=== PATIENT | male | born 1990 | race Hispanic/Latino ===

== ENCOUNTER 2023-06-11 13:40 | Emergency (ER) | payer OTHER, SELFPAY ==
[2023-06-11 13:41] VITALS: BP 135/98; PULSE 79; RESP 18; TEMP 36.3; O2SAT 100; BMI 24.0
--- NOTE | 2023-06-11 15:29 | EX.ED.DYSGE1 ---
HPI <ROXANN Cavazos - Last Filed: 06/11/23 15:43> History of Present Illness Chief Complaint: Fever Narrative Narrative: Patient is a 32-year-old male with no significant medical history [place] presents to the emergency department for fever 2 days ago, as well as concern for elevated cholesterol. I spoke with the patient's regional sales trainer who is sitting bedside. Patient states that 3 days ago, the patient was having body aches, fever. Patient states he does not feel any of that now however he is here concerning for high cholesterol. PFSH <ROXANN Cavazos - Last Filed: 06/11/23 15:43> PFSH Allergy/AdvReac Type Severity Reaction Status Date / Time No Known Allergies Allergy Verified 06/11/23 13:41 Social History Smoking Status: Never smoker ROS <ROXANN Cavazos - Last Filed: 06/11/23 15:43> ROS ED ROS Narrative Constitutional: Negative for weight loss, weakness. Positive fever and chills Eyes: Negative for vision loss, vision change, double vision ENT: Negative for any sore throat, ear pain, congestion Cardiovascular: Negative for any chest pain, tightness, palpitations Respiratory: Negative for any cough, sputum production, hemoptysis, dyspnea, dyspnea on exertion, orthopnea Gastrointestinal: Negative for any abdominal pain, nausea, vomiting, diarrhea, constipation, blood in stool, blood in vomit : Negative for any urinary frequency, dysuria, retention, blood in urine Muscle skeletal: Negative for any myalgias, arthralgias, neck pain, back pain Neurological: Negative for any headache, syncope, numbness or tingling, dizziness Skin: Negative for any rashes, lumps, itching, abrasions, lacerations Psychiatric: Negative for any depression, anxiety, stress, suicidal ideation, homicidal ideation Hematologic: Negative for any easy bruising, excessive bruising, easy bleeding Allergies: Negative for any eczema, hives, rash EXAM <ROXANN Cavazos Last Filed: 06/11/23 15:43> Physical Exam Narrative Exam Narrative: Vital signs reviewed. HEET: Head normocephalic atraumatic, TMs clear bilaterally. Posterior pharynx is clear, moist mucous membranes. Nares clear bilaterally. Neck: Supple with no lymphadenopathy or tenderness. No signs of meningismus. Cardiac: Regular rate and rhythm no murmurs gallops or rubs, equal peripheral pulses bilaterally. Respiratory: Lungs clear to auscultation bilaterally. No chest tenderness. Abdomen: Soft, nontender, nondistended. No abdominal bruit or pulsatile masses. No hepatosplenomegaly Extremities: No peripheral edema, no signs of gross trauma or deformity. Active full range of motion of all extremities. Neuro: Cranial nerves II through XII intact, no focal neurological deficits. Skin: Clean dry and intact with no rash, purpura, petechiae, vesicles or pustules. Backs/flank: No CVA tenderness, no midline spinal tenderness, no deformity. Psych: Normal mood and affect. No SI, HI or acute psychosis. Const Vital Signs: 06/11/23 13:41 06/11/23 14:53 Temperature 97.4 F L Temperature Source Temporal Pulse Rate 79 Respiratory Rate 18 Respiratory Effort Normal Respiratory Pattern Normal Blood Pressure 135/98 H Blood Pressure Mean 110 Pulse Ox 100 Oxygen Delivery Method Room Air <Dr. Logan Kemp DO - Last Filed: 06/11/23 23:10> Physical Exam Const Vital Signs: 06/11/23 13:41 06/11/23 14:53 Temperature 97.4 F L Temperature Source Temporal Pulse Rate 79 Respiratory Rate 18 Respiratory Effort Normal Respiratory Pattern Normal Blood Pressure 135/98 H Blood Pressure Mean 110 Pulse Ox 100 Oxygen Delivery Method Room Air [facility] <ROXANN Cavazos - Last Filed: 06/11/23 15:43> [facility] Treatment and Re-Evaluation :: Patient appears generally well, patient appears nontoxic, vital signs are stable. Patient presents to the emergency department for concern of elevated cholesterol. Patient did have fever and chills 3 days ago, patient will receive a COVID-19/influenza test. Differential diagnosis includes hyperlipidemia, COVID-19, influenza. I spoke with the patient via the spanish interpreter, I did let the patient know that he does need a primary care provider, they will be able to perform multiple screening tests. Patient denies any chest pain or shortness of breath. Patient's COVID-19, influenza was negative. At this time, do believe patient stable for discharge. He will be given referral to primary care provider. He was instructed via the staff interpreter. Patient will follow-up outpatient. All questions answered, patient stable for discharge <Dr. Logan Kemp DO - Last Filed: 06/11/23 23:10> [facility] Treatment and Re-Evaluation :: Patient appears generally well, patient appears nontoxic, vital signs are stable. Patient presents to the emergency department for concern of elevated cholesterol. Patient did have fever and chills 3 days ago, patient will receive a COVID-19/influenza test. Differential diagnosis includes hyperlipidemia, COVID-19, influenza. I spoke with the patient via the spanish interpreter, I did let the patient know that he does need a primary care provider, they will be able to perform multiple screening tests. Patient denies any chest pain or shortness of breath. Patient's COVID-19, influenza was negative. At this time, do believe patient stable for discharge. He will be given referral to primary care provider. He was instructed via the staff interpreter. Patient will follow-up outpatient. All questions answered, patient stable for discharge Attending note: Patient seen and evaluated with youth director. I perform my own [id number] evaluation. I agree with the plan of work-up. Patient presenting here translation individual available. Reported fever yesterday that resolved. He has [place] the [place] for for little over a year. He does not have a PCP. Discussion his concerns, stated concerns for hyperlipidemia. No cough. No vomiting or diarrhea. No urinary symptoms. No myalgias. He took Tylenol. Exam alert nontoxic no acute distress. Afebrile in the ED. Rapid COVID and flu obtained and were negative. He is referred to her primary care physician for outpatient testing for his concerns of hyperlipidemia. Discharge Plan Triage Chief Complaint: Fever ED Midlevel Provider: Yoni Husain ED Provider: Logan Kemp Dx/Rx/DC Orders Clinical Impression: History of viral illness Primary Care Provider: Care Physician,No Primary Referrals: Joel Carter MD [Med Staff - Nurse Tech] - Activity Restrictions/Additional Instructions: I have given you a primary care provider to follow-up with, call to get your screening labs done such as cholesterol, blood pressure, every day health. Print Language: Djiboutian Disposition Disposition: Home, Self Care Discharge Date/Time: 06/11/23 15:58
== END 2023-06-11 15:58 | disposition home or self-care (01) ==
LOC: ED 15:53
PROVIDERS: Emergency Provider Emergency Medicine; Visit Provider Emergency Medicine
DX: B34.9 Viral infection, unspecified (principal)
CPT/HCPCS: 87428; 99282

== ENCOUNTER 2023-06-24 15:55 | Emergency (ER) | payer SELFPAY ==
[2023-06-24 15:55] VITALS: BP 130/91; PULSE 90; RESP 14; TEMP 36.2; O2SAT 100; BMI 21.7
--- NOTE | 2023-06-24 16:14 | EKG12_ITS ---
Test Reason : CP Blood Pressure : / mmHG Vent. Rate : 081 BPM Atrial Rate : 081 BPM P-R Int : 172 ms QRS Dur : 078 ms QT Int : 354 ms P-R-T Axes : 073 033 036 degrees QTc Int : 411 ms Normal sinus rhythm Normal ECG Confirmed by GEORGINA GARCIA, AYAH ([id number]), research editor ERYN MAST ([id number]) on 07/02/2023 6:46:27 AM Referred By: ES/PL Confirmed By:MALI ERICKSON MD
--- NOTE | 2023-06-24 16:21 | EDS_ITS ---
HPI History of Present Illness Chief Complaint: Chest Pain Informant: patient and other (Cloth Washer Back Tender brought with patient.) Narrative Narrative: Patient presents with palpitations and chest pain. He states this episode has been going off and on since about 3:00 this morning so over 12 hours. He has had 4 or 5 other episodes of this. He did have some alcohol but states they do not always occur after that. They do seem to occur after he eats or drinks something different. He states 1 was after drinking some lemon juice. 1 was after eating pork last night. He states when this happens he feels very anxious about it. He has never been officially diagnosed with anxiety. He is not coughing. He is not syncopal. All the discomfort is in the center of his chest and does not radiate. He does get some tingling of his fingertips with this. He has been seen before for this. He is not sure if it was here or elsewhere. He states when he is seen nothing is ever found. There has not been any follow-up yet. He takes no medications No allergies No surgeries He denies any recent travel surgery immobilization personal family history of DVT or PE. There is no heart history in his family. PFSH PFSH Allergy/AdvReac Type Severity Reaction Status Date / Time No Known Allergies Allergy Verified 06/24/23 15:57 Social History Smoking Status: Never smoker ROS ROS ED ROS Narrative A complete review of systems was performed and is negative except as documented in the history of present illness. Some specific details below. Constitutional: No recent fevers states he does feel chilled when he gets this. He states he gets a fine tremor or shaking. But has not had a fever. EYE: No discharge, visual complaints, or pain. ENT: No difficulty swallowing. No swelling. No pain. No reflux symptoms. CV: See history of present illness. Respiratory: Not short of breath or coughing. GI: No abdominal pain. No nausea vomiting diarrhea. No blood in stool. : No frequency dysuria or hematuria. Musculoskeletal: No recent trauma. No pains. No swelling. Skin: No rash. Nondiaphoretic. Neuro: No weakness or numbness. Get a paresthesia of his fingertips sometimes but not every time. Endocrine: No polyuria or polydipsia. Psychiatry: He states he does feel anxious with these episodes but he is not sure if that is what starts them or it develops after the episode occurs. EXAM Physical Exam Narrative Exam Narrative: CONSTITUTIONAL: Patient is nontoxic in appearance. The patient looks comfortable. Work of breathing looks normal. HEENT: No notable trauma. Mucous membranes moist. No sinus tenderness. No indication of pain with swallowing. EYES: No conjunctival injection. No proptosis. Pallor. NECK:No JVD. No stridor. CARDIOVASCULAR: Regular rate. Regular rhythm. No notable murmur. No JVD. Monitor, his heart rate is 83 and regular and appears to be in sinus rhythm. I see no ectopy on the monitor. RESPIRATORY: No respiratory distress. Breathing is unlabored. No wheezes. No rhonchi. No rales. No pain with a deep breath. No chest wall tenderness. Saturations are normal at 100% on room air showing no hypoxia. GASTROINTESTINAL: Not distended. Bowel sounds are normal. No tenderness. No guarding. No rebound. No palpable mass. No bruit is heard. GENITOURINARY: No tenderness over the bladder. No CVA tenderness. MUSCULOSKELETAL: Atraumatic. No peripheral edema. No cord. No tenderness along the deep venous system. No asymmetry. No distended veins. NEUROLOGICAL: Patient is alert and appropriate. No focal deficit noted. SKIN: No noted rashes. No diaphoresis. PSYCHIATRIC: Patient does appear to be anxious. He has almost a fine tremor. Const Vital Signs: 06/24/23 15:55 06/24/23 16:29 06/24/23 17:16 Temperature 97.1 F L Temperature Source Temporal Pulse Rate 90 64 Respiratory Rate 14 16 Blood Pressure 130/91 H 118/80 Blood Pressure Mean 104 92 Pulse Ox 100 100 Oxygen Delivery Method Room Air Room Air Room Air MDM MDM MDM Narrative Medical decision making narrative: My independent interpretation of the patient's chest x-ray shows no acute process and final reading is similar. Patient CBC is normal. Patient's electrolytes show no marked abnormalities. Patient's troponin is negative at 7 with over 12 hours of symptoms. I think this patient's symptoms may be related to GERD because it seems like it occurs after eating unique foods. Because of this we will put him on Prilosec [id number] for the next 30 days. But it is also possible it could be related to an anxiety type event. I think it is appropriate he follows up with primary doctor. We will see how the medicine is helping and further evaluation from there. Of note I did use director of analytics for this. It somebody the patient brought with him and that was his preferred method. Lab Data Attestation: I reviewed the patient's lab results. Labs: Laboratory Results - last 24 hr 06/24/23 16:28 WBC 5.7 RBC 5.01 Hgb 14.9 Hct 44.9 MCV 89.6 MCH 29.7 MCHC 33.2 RDW Std Deviation 40.9 RDW Coeff of Zulay 12.4 Plt Count 241 MPV 10.4 Immature Gran % (Auto) 0.200 Neut % (Auto) 67.2 Lymph % (Auto) 26.5 [place] % (Auto) 5.0 Eos % (Auto) 0.4 Baso % (Auto) 0.7 Absolute Neuts (auto) 3.8 Absolute Lymphs (auto) 1.50 Nucleated RBC % 0 Sodium 139 Potassium 3.5 Chloride 109 H Carbon Dioxide 23.0 Anion Gap 7 BUN 8 Creatinine 0.88 Estim Creat Clear Calc 110.13 Est GFR (MDRD) Af Amer 126 Est GFR (MDRD) Non-Af 104 BUN/Creatinine Ratio 9.0 L Glucose 106 Calcium 10.4 H Troponin I High Sens 7 Radiography Diagnostic Testing: Clinical Impression(s) from Imaging Studies Chest X-Ray 06/24/23 16:25 IMPRESSION: No radiographic evidence of acute cardiopulmonary disease. Electronically Signed: Ahmet Lara MD at 16:46 EST Reading Location ID and State: [facility] / [place] , Service support , EKG Initial EKG: Comments: My independent interpretation of the patient's EKG shows a normal sinus rhythm with overall rate of 81. No ventricular ectopy. Mild baseline variation but no ST elevation or depression. [place] interval, QRS duration and QTc are normal. There was no old for comparison. Discharge Plan Triage Chief Complaint: Chest Pain ED Provider: Corby Coburn Dx/Rx/DC Orders Clinical Impression: GERD (gastroesophageal reflux disease), Chest pain Instructions: ED Chest Pain, Uncertain Cause, ED GERD (Adult) Primary Care Provider: Care Physician,No Primary Referrals: Yesenia Sloan [Non-Staff] - 3-5 Days Care Physician,No Primary [Primary Care Provider] - Activity Restrictions/Additional Instructions: Purchase Prilosec [id number] and take once daily for the next 30 days. Print Language: Slovenian Disposition Disposition: Home, Self Care
--- NOTE | 2023-06-24 16:23 | ED.RN ---
NO OLD EKG
--- NOTE | 2023-06-24 16:25 | RAD_ITS ---
EXAM: XR CHEST, 1 VIEW CLINICAL INDICATION: chest pain TECHNIQUE: Frontal view of the chest. COMPARISON: No relevant prior studies available. FINDINGS: LUNGS AND PLEURAL SPACES: Unremarkable. No consolidation or edema. No pneumothorax. No effusion. HEART: Unremarkable. Cardiac silhouette not enlarged. MEDIASTINUM: Central airways and mediastinal contour are unremarkable. BONES/JOINTS: Unremarkable. No acute fracture. SOFT TISSUES: Unremarkable. RAD/Chest 1 View (Portable) IMPRESSION: No radiographic evidence of acute cardiopulmonary disease. Electronically Signed: Ahmet Lara MD at 16:46 EST ,
[2023-06-24 16:32] LABS: Absolute Neutrophil Count 3.8 X10^3/uL (2.0-7.7); Basophil# 0.04 X10^3/uL; Basophil% 0.7 % (0-1); Eosinophil# 0.02 X10^3/uL; Eosinophils% 0.4 % (0-5); Hematocrit 44.9 % (40-54); Hemoglobin 14.9 g/dL (13.0-16.5); Lymphocyte % 26.5 % (19-41); Mean Corp Hgb Conc 33.2 g/dL (32-36); Mean Corpuscular Hgb 29.7 pg (27.0-32.0); Mean Corpuscular Volume 89.6 fL (80-94); Mean Platelet Vol. 10.4 fl (6.2-12.0); Monocyte# 0.28 X10^3/uL; NRBC Flagged by Analyzer 0 % (0-5); Neutrophil % 67.2 % (47-70); Platelet Count 241 K/mm3 (150-450); RBC Distribution Width CV 12.4 % (11.6-14.6); RBC Distribution Width SD 40.9 fl (35.1-43.9); Red Blood Count 5.01 M/mm3 (4.6-6.2); White Blood Count 5.7 K/mm3 (4.4-11.0)
[2023-06-24 16:54] LABS: Anion Gap 7 (5-15); BUN 8 mg/dL (7-18); Calcium,Total 10.4 mg/dL (8.5-10.1); Chloride 109 mmol/L (98-107); Creatinine, Serum 0.88 mg/dL (0.70-1.30); EST Glomerular Filtration Rate 104 mL/min (>60); Est Glom Filt Rate - Afr Amer 126 mL/min (>60); Estimated Creatinine Clearance 110.13 ml/min; Glucose 106 mg/dL (74-106); Potassium 3.5 mmol/L (3.5-5.1); Sodium Level 139 mmol/L (136-145); Troponin-I HS 7 pg/mL (3.0-78.0)
[2023-06-24 17:16] VITALS: BP 118/80; PULSE 64; RESP 16; O2SAT 100
== END 2023-06-24 18:06 | disposition home or self-care (01) ==
PROVIDERS: Emergency Provider Emergency Medicine; Visit Provider Emergency Medicine
DX: R07.9 Chest pain, unspecified (principal); K21.9 Gastro-esophageal reflux disease without esophagitis
CPT/HCPCS: 71045; 80048; 84484; 85025; 93005; 99283; A4216

== ENCOUNTER 2023-06-28 10:34 | Emergency (ER) | payer SELFPAY ==
[2023-06-28 10:35] VITALS: BP 124/73; PULSE 87; RESP 14; TEMP 36.8; O2SAT 98; BMI 23.1
[2023-06-28 10:52] VITALS: PULSE 72; RESP 12; O2SAT 100
--- NOTE | 2023-06-28 11:05 | EKG12_ITS ---
Test Reason : CHEST PAIN Blood Pressure : / mmHG Vent. Rate : 067 BPM Atrial Rate : 067 BPM P-R Int : 166 ms QRS Dur : 078 ms QT Int : 384 ms P-R-T Axes : 074 027 039 degrees QTc Int : 405 ms Normal sinus rhythm Normal ECG Confirmed by GEORGINA GARCIA, AYAH ([id number]), editor newspaper EDEN VALLADARES ([id number]) on 07/02/2023 1:59:34 P M Referred By: RU Confirmed By:MALI ERICKSON MD
--- NOTE | 2023-06-28 11:05 | EX.ED.DYSGE1 ---
HPI History of Present Illness Chief Complaint: Palpitations Detail of Chief Complaint: Palpitations and chest pain Informant: patient Narrative Narrative: Patient presents the emergency department complaint palpitations and chest pain. Patient states that he has had the symptoms for over a month. He has been seen in the emergency department for same and was thought he had anxiety and GERD. Patient states his GERD symptoms are better. Patient states at times his heart starts to race and he feels short of breath and then passes out. He is passed out about 5 times. His last syncopal episode was about a week ago. He denies recent illness. He denies recent travel or surgery. Patient speaking and had to use the iPad salad chef to interview patient. He otherwise has no medical history. He does not take anything for anxiety. [facility] Medical History (Updated 06/28/23 @ 12:[address] Se Guzmán DO) GERD (gastroesophageal reflux disease) History of ETOH abuse Home Medications lorazepam 1 mg tablet (Ativan) 1 mg PO TID PRN anxiety #10 tabs 06/28/23 [Rx Last Taken Unknown] Allergy/AdvReac Type Severity Reaction Status Date / Time No Known Allergies Allergy Verified 06/28/23 10:34 Social History Smoking Status: Never smoker ROS ROS ED Review of Systems ROS Unobtainable: other Constitutional Constitutional ED: Reports lethargy; Denies chills, fever(s), sweats or weight loss Eyes Eyes: Denies blurry vision, change in vision or diplopia ENT ENT ED: Denies rhinorrhea or sore throat Cardiovascular Cardiovascular: Reports chest pain and racing heartbeat; Denies orthopnea Respiratory/Chest Respiratory/Chest: Reports dyspnea; Denies cough, dyspnea on exertion, orthopnea or sputum Gastrointestinal Gastrointestinal: Denies abdominal pain, diarrhea, nausea or vomiting Genitourinary Genitourinary ED: Denies dysuria, hematuria or urinary frequency Musculoskeletal Musculoskeletal: Denies arthralgias, back pain, myalgias or neck pain Integumentary Denies abscess, Abrasions or rash Neurologic Neurologic: Reports other Details: Syncope ; Denies headache(s) or weakness Psychiatric Psychiatric: Denies anxiety, depression or suicidal thoughts Endocrine Endocrinology: Denies polydipsia, polyphagia or polyuria Hematologic/Lymphatic Hematologic/Lymphatic: Denies easy bleeding, easy bruising or lymphadenopathy Allergic/Immunologic Allergic/Immunologic ED: Denies mouth swelling, tongue swelling or urticaria EXAM Physical Exam Const Vital Signs: 06/28/23 10:35 06/28/23 10:52 06/28/23 10:54 Temperature 98.2 F Temperature Source Temporal Pulse Rate 87 72 Pulse Rate [Lying] Pulse Rate [Sitting (for 1 minute prior to obtaining)] Pulse Rate [Standing (for 1 minute prior to obtaining)] Respiratory Rate 14 12 Respiratory Effort Normal Blood Pressure 124/73 H Blood Pressure [Lying] Blood Pressure [Sitting (for 1 minute prior to obtaining)] Blood Pressure [Standing (for 1 minute prior to obtaining)] Blood Pressure Mean 90 Blood Pressure Mean [Lying] Blood Pressure Mean [Sitting (for 1 minute prior to obtaining)] Blood Pressure Mean [Standing (for 1 minute prior to obtaining)] Pulse Ox 98 100 Oxygen Delivery Method Room Air Room Air 06/28/23 11:40 06/28/23 12:28 Temperature Temperature Source Pulse Rate 60 Pulse Rate [Lying] 64 Pulse Rate [Sitting (for 1 minute prior to obtaining)] 63 Pulse Rate [Standing (for 1 minute prior to obtaining)] 62 Respiratory Rate 15 Respiratory Effort Blood Pressure 111/71 Blood Pressure [Lying] 118/75 Blood Pressure [Sitting (for 1 minute prior to obtaining)] 119/77 Blood Pressure [Standing (for 1 minute prior to obtaining)] 119/80 Blood Pressure Mean 84 Blood Pressure Mean [Lying] 89 Blood Pressure Mean [Sitting (for 1 minute prior to obtaining)] 91 Blood Pressure Mean [Standing (for 1 minute prior to obtaining)] 93 Pulse Ox 99 Oxygen Delivery Method Positive well nourished and well developed General Appearance ED: well developed and NAD HEENT Reports TM's clear and moist mucous membranes normocephalic and atraumatic; Negative for trauma or tenderness Tympanic Membrane ED: Yes TM's clear Eyes PERRL and EOMs intact bilaterally General Eye ED: Negative for pale conjunctiva or scleral icterus Neck no lymphadenopathy, supple and no JVD General: Negative for tenderness Chest Wall inspection of chest normal and palpation of chest normal Chest: Negative for tenderness Resp normal respiratory effort and clear to auscultation bilaterally Effort and Inspection: Negative for respiratory distress or pain with movement Auscultation: Negative for rhonchi, wheezes or diminished lung sounds Cardio regular rate, regular rhythm, S1 normal heart sound, S2 normal heart sound and no murmurs Peripheral Pulses: pulses 2+ throughout GI normal to inspection, nondistended, normoactive bowel sounds, soft to palpation, non-tender, non-distended and no masses Back/Spine no CVA tenderness and no thoracic nor lumbar tenderness Extremity normal to inspection General Extremety ED: Negative for edema General Extremity: Negative for edema Neuro oriented x3, CN's II-XII intact bilaterally, no sensory deficits noted and gait normal Sensorium / Orientation: awake, alert, oriented to person, oriented to place and oriented to time Motor Exam: strength 5/5 throughout and strength abnormal Psych mental status grossly normal Skin no rashes or lesions noted and no wounds MDM MDM MDM Narrative Medical decision making narrative: Patient presents with complaint of palpitations with syncopal episodes and history of anxiety. He has been to the ER for same complaint. His workup in the past was unremarkable. I did rerepeat an EKG here that showed a sinus rhythm with a rate of 67 bpm with no acute segment changes. CBC with differential and chemistries were normal. Troponin was normal. D-dimer was less than 0.27. Chest x-ray unremarkable. At this point etiology of his palpitations unclear as I did not appreciate any ectopy on the monitor. Will order a 48-hour Holter monitor and refer to cardiology for follow-up. Will also give him a prescription for as needed Ativan as needed for anxiety. Lab Data Attestation: I reviewed the patient's lab results. Labs: Laboratory Results - last 24 hr 06/28/23 11:00 WBC 5.1 RBC 4.93 Hgb 15.1 Hct 44.3 MCV 89.9 MCH 30.6 MCHC 34.1 RDW Std Deviation 40.5 RDW Coeff of [place]ul[place] 12.3 Plt Count 217 MPV 10.7 Immature Gran % (Auto) 0.200 Neut % (Auto) 50.7 Lymph % (Auto) 40.0 [place] % (Auto) 6.1 Eos % (Auto) 2.4 Baso % (Auto) 0.6 Absolute Neuts (auto) 2.6 Absolute Lymphs (auto) 2.03 Nucleated RBC % 0 D-Dimer Quant (PE/DVT) < 0.27 L Sodium 137 Potassium 3.8 Chloride 106 Carbon Dioxide 28.0 Anion Gap 3 L BUN 14 Creatinine 1.04 Estim Creat Clear Calc 90.32 Est GFR (MDRD) Af Amer 105 Est GFR (MDRD) Non-Af 87 BUN/Creatinine Ratio 13.5 Glucose 90 Calcium 9.3 Troponin I High Sens 6 Radiography Diagnostic Testing: Clinical Impression(s) from Imaging Studies Chest X-Ray 06/28/23 11:30 IMPRESSION: Normal x-ray examination of the chest. Electronically Signed: Tono Diane MD at 11:55 EST , 1 view chest x-ray obtained interpreted by myself as no evidence of infiltrate or acute disease process. Radiology in agreement. EKG Initial EKG: Attestation: I personally reviewed and interpreted this EKG as follows: Comments: Sinus rhythm with rate 67 bpm with no acute ST segment changes. Discharge Plan Triage Chief Complaint: Palpitations ED Provider: Se Guzmán Dx/Rx/DC Orders Clinical Impression: Palpitation, Anxiety, Syncope Instructions: ED Anxiety Reaction, ED Palpitations, ED Fainting, Uncertain Cause Prescriptions: New lorazepam [Ativan] 1 mg tablet 1 mg PO TID PRN (Reason: anxiety) Qty: 10 0RF Primary Care Provider: Care Physician,No Primary Referrals: Mary Haywood MD [Med Staff - Active Staff] - 5-7 Days Care Physician,No Primary [Primary Care Provider] - Disposition Disposition: Home, Self Care Discharge Date/Time: 06/28/23 13:11
[2023-06-28 11:24] LABS: Absolute Lymphocyte Count 2.03 X10^3/uL (0.83-4.51); Absolute Neutrophil Count 2.6 X10^3/uL (2.0-7.7); Basophil# 0.03 X10^3/uL; Basophil% 0.6 % (0-1); Eosinophil# 0.12 X10^3/uL; Eosinophils% 2.4 % (0-5); Hematocrit 44.3 % (40-54); Hemoglobin 15.1 g/dL (13.0-16.5); Lymphocyte # 2.03 X10^3/ul (0.83-4.51); Mean Corp Hgb Conc 34.1 g/dL (32-36); Mean Corpuscular Hgb 30.6 pg (27.0-32.0); Mean Corpuscular Volume 89.9 fL (80-94); Mean Platelet Vol. 10.7 fl (6.2-12.0); Monocyte# 0.31 X10^3/uL; Monocyte% 6.1 % (0-10); NRBC Flagged by Analyzer 0 % (0-5); Neutrophil # 2.58 X10^3/uL (2.7-7.7); Neutrophil % 50.7 % (47-70); Platelet Count 217 K/mm3 (150-450); RBC Distribution Width CV 12.3 % (11.6-14.6); RBC Distribution Width SD 40.5 fl (35.1-43.9); Red Blood Count 4.93 M/mm3 (4.6-6.2); White Blood Count 5.1 K/mm3 (4.4-11.0)
--- NOTE | 2023-06-28 11:30 | RAD_ITS ---
STUDY: X-RAY CHEST REASON FOR EXAM: Male, 32 years old. Chest pain TECHNIQUE: Single AP portable view of the chest. COMPARISON: Comparison is made with prior study June 24, 2023. FINDINGS: EKG electrodes are seen. The lungs are clear and expanded. There is no demonstrated pleural abnormality. Normal size heart. Normal mediastinum and lianet. Normal visualized pulmonary arteries. Normal visualized aortic arch and descending thoracic aorta. Normal visualized thoracic spine. Normal visualized ribs, clavicles, and shoulders. There is no demonstrated abnormality of the visualized soft tissue structures of the upper abdomen. RAD/Chest 1 View (Portable) IMPRESSION: Normal x-ray examination of the chest. Electronically Signed: Tono Diane MD at 11:55 EST ,
[2023-06-28 11:40] VITALS: BP 118/75; BP 119/77; BP 119/80; PULSE 62; PULSE 63; PULSE 64
[2023-06-28 11:42] LABS: Anion Gap 3 (5-15); BUN 14 mg/dL (7-18); BUN/Creat Ratio 13.5 RATIO (10-20); Calcium,Total 9.3 mg/dL (8.5-10.1); Chloride 106 mmol/L (98-107); Creatinine, Serum 1.04 mg/dL (0.70-1.30); EST Glomerular Filtration Rate 87 mL/min (>60); Est Glom Filt Rate - Afr Amer 105 mL/min (>60); Estimated Creatinine Clearance 90.32 ml/min; Glucose 90 mg/dL (74-106); Potassium 3.8 mmol/L (3.5-5.1); Sodium Level 137 mmol/L (136-145); Troponin-I HS 6 pg/mL (3.0-78.0)
[2023-06-28] MEDS: 0.9% Normal Saline (1000mL) 1,000 ML 150 ML IV (11:42)
[2023-06-28 11:47] LABS: D-Dimer Quantitative (DVT/PE) < 0.27 FEU/ug/m (0.27-0.49)
[2023-06-28 12:28] VITALS: BP 111/71; PULSE 60; RESP 15; O2SAT 99
== END 2023-06-28 13:11 | disposition home or self-care (01) ==
PROVIDERS: Emergency Provider Emergency Medicine; Visit Provider Emergency Medicine
DX: R00.2 Palpitations (principal); F41.9 Anxiety disorder, unspecified; R55 Syncope and collapse
CPT/HCPCS: 71045; 80048; 84484; 85025; 85379; 93005; 96360; 99285; J7030; A4216

== ENCOUNTER → 2023-06-28 | Outpatient (CLI) | payer SELFPAY | END | disposition home or self-care (01) | LOC: CVS 12:35 | PROVIDERS: Visit Provider Emergency Medicine | DX: R07.9 Chest pain, unspecified (principal); R00.2 Palpitations | CPT/HCPCS: 93225; 93226 ==